=== PATIENT | male | born 2000 ===

== ENCOUNTER 2024-09-21 22:11 | Emergency (ER) | payer OTHER ==
[~2024-09-21] VITALS: Ht 165.1 cm; Wt 60.0 kg
[2024-09-21 22:16] VITALS: TEMP 98.4
[2024-09-22] MEDS: IBUPROFEN 600 MG TABLET PO ONE (00:12)
[2024-09-22 00:19] VITALS: BP 132/79; PULSE 74; RESP 18; O2SAT 99
== END 2024-09-22 00:19 ==
LOC: EMS 22:30
DX: S63.601A Unspecified sprain of right thumb, initial encounter (principal); W21.05XA Struck by basketball, initial encounter; Y93.67 Activity, basketball; Y92.89 Other specified places as the place of occurrence of the external cause; Y99.8 Other external cause status
CPT/HCPCS: 99283